=== PATIENT | female | born 1935 | race African-American/Black ===

== ENCOUNTER 2017-11-01 07:23 | Inpatient (IN) | payer OTHER ==
[~2017-11-01] VITALS: Ht 180.3 cm; Wt 76.0 kg
[2017-11-01] VITALS (8 sets, daily range): BP systolic 102–148; BP diastolic 61–87
[2017-11-01 07:41] LABS: BASE EXCESS -9.6 mEq/L (-3 to +3); METHEMOGLOBIN 0.7 % (0-1.5); PCO2 51 mm Hg (35-45); PO2 50 mm Hg (80-100)
[2017-11-01 07:42] LABS: COMMENTS - BLOOD GASES A+C+; DEVICE NEB; O2 FLOW 8 L/MIN; SITE RR; pH 7.18 (7.35-7.45)
[2017-11-01 07:53] LABS: HEMATOCRIT 44.8 % (36.0-46.0); HEMOGLOBIN 14.1 G/DL (11.9-15.5); MCH 31.6 PG (29.0-34.0); MCHC 31.5 G/DL (30.0-36.0); MCV 100.4 FL (83-99); PLATELET COUNT 294 K/uL (156-360); RBC DIS.WIDTH-CV 14.1 % (11.8-14.6); RBC DIS.WIDTH-SD 52.7 % (39-53); RED BLOOD COUNT 4.46 M/uL (3.80-5.20); WHITE BLOOD COUNT 15.3 K/uL (4.1-10.2)
[2017-11-01 07:59] LABS: INTER. NORMALIZED RATIO 1.1
[2017-11-01 08:03] LABS: ALBUMIN 3.6 g/dL (3.2-4.8); CHLORIDE 107 mEq/L (99-109); POTASSIUM 3.8 mEq/L (3.7-5.4); SODIUM 140 mEq/L (136-147)
[2017-11-01 08:04] LABS: MAGNESIUM 2.1 mg/dL (1.3-2.7)
[2017-11-01 08:06] LABS: TOTAL PROTEIN 7.5 g/dL (6.4-8.3)
[2017-11-01 08:07] LABS: TOTAL BILIRUBIN 0.6 mg/dL (0.0-1.0)
[2017-11-01 08:09] LABS: ALKALINE PHOSPHATASE 106 IU/L (3-129); CREATININE 1.6 mg/dL (0.6-1.3); GFR ESTIMATE (CALCULATED) 40 mL/min/
[2017-11-01 08:10] LABS: UREA NITROGEN (BUN) 17 mg/dL (9-23)
[2017-11-01 08:11] LABS: AST (GOT) 38 IU/L (2-34)
[2017-11-01 08:12] LABS: ALT (GPT) 29 IU/L (3-49); CREATINE KINASE 107 IU/L (1-294); TOTAL CK 107 IU/L (1-294)
[2017-11-01 08:13] LABS: TROP-I INTERPRETATION NEGATIVE; TROPONIN-I 0.13 ng/mL (0.0-0.30)
[2017-11-01 08:14] LABS: GLUCOSE 576 mg/dL (70-99)
[2017-11-01 08:18] LABS: CK-MB 4.2 ng/mL (0.0-4.9); CKMB RELATIVE INDEX 3.9 (0.0-3.9)
[2017-11-01 09:20] LABS: CHLORIDE 108 mEq/L (99-109); POTASSIUM 4.3 mEq/L (3.7-5.4); SODIUM 139 mEq/L (136-147)
[2017-11-01 09:26] LABS: CREATININE 1.5 mg/dL (0.6-1.3); GFR ESTIMATE (CALCULATED) 43 mL/min/; PHOSPHORUS 4.1 mg/dL (2.5-4.9)
[2017-11-01 09:27] LABS: UREA NITROGEN (BUN) 17 mg/dL (9-23)
[2017-11-01 09:34] LABS: GLUCOSE 512 mg/dL (70-99)
[2017-11-01] MEDS ORDERED: NORVASC5 MG PO (13:05)
[2017-11-01] MEDS ORDERED: SYNTHROID112 MCG PO (13:05)
[2017-11-01] MEDS ORDERED: ATENOLOL50 MG PO (13:05)
[2017-11-01] MEDS ORDERED: NITROSTAT0.4 MG SL (13:06)
[2017-11-01] MEDS ORDERED: LOSARTAN POTAS100 MG PO (13:06)
[2017-11-01] MEDS ORDERED: GABAPENTIN100 MG PO (13:06)
[2017-11-01] MEDS ORDERED: ASPIRIN EC325 MG PO (13:06)
[2017-11-01] MEDS ORDERED: GLIPIZIDE5 MG PO (13:06)
[2017-11-01] MEDS ORDERED: METFORMIN HCL850 MG PO (13:06)
[2017-11-01 15:38] LABS: CHLORIDE 110 mEq/L (99-109); POTASSIUM 4.3 mEq/L (3.7-5.4); SODIUM 142 mEq/L (136-147)
[2017-11-01 15:42] LABS: GLUCOSE 249 mg/dL (70-99)
[2017-11-01 15:43] LABS: CREATININE 1.3 mg/dL (0.6-1.3); GFR ESTIMATE (CALCULATED) 51 mL/min/; PHOSPHORUS 2.9 mg/dL (2.5-4.9)
[2017-11-01 15:44] LABS: UREA NITROGEN (BUN) 18 mg/dL (9-23)
[2017-11-01 21:09] LABS: CHLORIDE 107 MEQ/L (99-109); CREATININE 1.1 MG/DL (0.6-1.3); GFR ESTIMATE (CALCULATED) > 59 mL/min/; GLUCOSE 183 mg/dL (70-99); PHOSPHORUS 2.7 mg/dL (2.5-4.9); POTASSIUM 4.1 MEQ/L (3.7-5.4); SODIUM 139 MEQ/L (136-147); UREA NITROGEN (BUN) 17 mg/dL (9-23)
[2017-11-01 22:44] LABS: APPEARANCE CLEAR ((CLEAR)); BILIRUBIN NEGATIVE; BLOOD SMALL; COLOR YELLOW ((YELLOW)); GLUCOSE (STRIP) NEGATIVE; KETONES NEGATIVE; LEUKOCYTES NEGATIVE; NITRITE NEGATIVE; PROTEIN (STRIP) NEGATIVE; SPECIFIC GRAVITY 1.009 (1.000-1.030); UROBILINOGEN 0.2 MG/DL (0.2-1.0)
[2017-11-01 23:02] LABS: BACTERIA NONE SEEN /HPF; EPITHELIAL CELLS RARE /HPF; HYALINE CASTS 0-5 /LPF; MUCUS TRACE /LPF; RED BLOOD CELLS 0-5 /HPF (0-5); UCUL ADDED? NO; WHITE BLOOD CELLS 0-5 /HPF (0-5)
[2017-11-02] VITALS (23 sets, daily range): BP systolic 82–164; BP diastolic 45–98
[2017-11-02 02:20] LABS: CHLORIDE 109 mEq/L (99-109); SODIUM 140 mEq/L (136-147)
[2017-11-02 02:22] LABS: GLUCOSE 252 mg/dL (70-99)
[2017-11-02 02:25] LABS: CREATININE 1.2 mg/dL (0.6-1.3); GFR ESTIMATE (CALCULATED) 55 mL/min/; PHOSPHORUS 3.7 mg/dL (2.5-4.9); POTASSIUM 5.1 mEq/L (3.7-5.4)
[2017-11-02 02:26] LABS: UREA NITROGEN (BUN) 17 mg/dL (9-23)
[2017-11-02 05:12] LABS: BASOPHIL (%) 0.3 % (0-1); EOSINOPHIL (%) 0 % (0-5); HEMATOCRIT 42.3 % (36.0-46.0); HEMOGLOBIN 13.4 G/DL (11.9-15.5); IMMATURE GRANULOCYTE (%) 0.6 % (0.0-0.7); LYMPHOCYTE (%) 7.7 % (15-42); LYMPHOCYTE COUNT 1.2 K/uL (1.0-2.8); MCH 31.2 PG (29.0-34.0); MCHC 31.7 G/DL (30.0-36.0); MCV 98.6 FL (83-99); MONOCYTE COUNT 0.6 K/uL (0-0.8); NEUTROPHIL (%) 87.4 % (45-76); NEUTROPHIL COUNT 13.8 K/uL (1.8-6.4); PLATELET COUNT 227 K/uL (156-360); RBC DIS.WIDTH-CV 14.3 % (11.8-14.6); RBC DIS.WIDTH-SD 51.6 % (39-53); RED BLOOD COUNT 4.29 M/uL (3.80-5.20); WHITE BLOOD COUNT 15.7 K/uL (4.1-10.2)
[2017-11-02 05:39] LABS: BASE EXCESS -4.5 mEq/L (-3 to +3); BICARBONATE 21.1 mEq/L (22-26); METHEMOGLOBIN 1.5 % (0-1.5); PCO2 40 mm Hg (35-45); PO2 89 mm Hg (80-100); SITE RR; pH 7.33 (7.35-7.45)
[2017-11-02 05:40] LABS: COMMENTS - BLOOD GASES A+C+; CONTINUOUS POS AIRWAY PRESSURE 5 cm H2O; DEVICE MASK VENT; FI02 100 %; MODE NSPONT; PRES. SUPPORT 10 CM/H2O; TOTAL RESP RATE 26 resp/min
[2017-11-02 05:41] LABS: CHLORIDE 105 MEQ/L (99-109); CREATININE 1.1 MG/DL (0.6-1.3); GFR ESTIMATE (CALCULATED) > 59 mL/min/; GLUCOSE 259 mg/dL (70-99); MAGNESIUM 1.8 mg/dl (1.3-2.7); SODIUM 139 MEQ/L (136-147); UREA NITROGEN (BUN) 18 mg/dL (9-23)
[2017-11-02 05:43] LABS: PHOSPHORUS 3.8 mg/dL (2.5-4.9)
[2017-11-02 08:31] LABS: HEMOGLOBIN A1c (GLYCOHEMOGLOB) 7.3 % (Below 5.7)
[2017-11-02 08:55] LABS: CHLORIDE 107 MEQ/L (99-109); GFR ESTIMATE (CALCULATED) > 59 mL/min/; GLUCOSE 274 mg/dL (70-99); PHOSPHORUS 3.4 mg/dL (2.5-4.9); POTASSIUM 5.1 MEQ/L (3.7-5.4); SODIUM 138 MEQ/L (136-147); UREA NITROGEN (BUN) 20 mg/dL (9-23)
[2017-11-02 11:45] LABS: BASE EXCESS -1.1 mEq/L (-3 to +3); CARBOXY HGB 1.9 % (0-5); COMMENTS - BLOOD GASES C+; CONTINUOUS POS AIRWAY PRESSURE 5 cm H2O; DEVICE MASK VENT; FI02 50 %; METHEMOGLOBIN 1.7 % (0-1.5); MODE SPONT; PCO2 31 mm Hg (35-45); PEEP 0 CM/H20; PO2 74 mm Hg (80-100); PRES. SUPPORT 10 CM/H2O; SITE RR; TOTAL RESP RATE 26 resp/min; pH 7.46 (7.35-7.45)
[2017-11-02 12:36] LABS: CHLORIDE 106 MEQ/L (99-109); POTASSIUM 4.8 MEQ/L (3.7-5.4); SODIUM 139 MEQ/L (136-147)
[2017-11-02 12:41] LABS: CREATININE 1.1 MG/DL (0.6-1.3); GFR ESTIMATE (CALCULATED) > 59 mL/min/; GLUCOSE 281 mg/dL (70-99); UREA NITROGEN (BUN) 21 mg/dL (9-23)
[2017-11-02 15:22] LABS: CHLORIDE 107 MEQ/L (99-109); CREATININE 1.1 MG/DL (0.6-1.3); GFR ESTIMATE (CALCULATED) > 59 mL/min/; GLUCOSE 242 mg/dL (70-99); POTASSIUM 4.7 MEQ/L (3.7-5.4); SODIUM 141 MEQ/L (136-147); UREA NITROGEN (BUN) 22 mg/dL (9-23)
[2017-11-02 17:27] LABS: CHLORIDE 106 MEQ/L (99-109); CREATININE 1.1 MG/DL (0.6-1.3); GFR ESTIMATE (CALCULATED) > 59 mL/min/; GLUCOSE 239 mg/dL (70-99); POTASSIUM 4.7 MEQ/L (3.7-5.4); SODIUM 141 MEQ/L (136-147); UREA NITROGEN (BUN) 22 mg/dL (9-23)
[2017-11-03] VITALS (23 sets, daily range): BP systolic 90–149; BP diastolic 46–91
[2017-11-03 06:25] LABS: BASE EXCESS -0.2 mEq/L (-3 to +3); CARBOXY HGB 2.1 % (0-5); METHEMOGLOBIN 1.4 % (0-1.5); PO2 64 mm Hg (80-100); pH 7.42 (7.35-7.45)
[2017-11-03 06:26] LABS: DEVICE HHFNC; O2 FLOW 40 L/MIN; PCO2 37 mm Hg (35-45); SITE RR
[2017-11-03 06:27] LABS: FI02 70 %
[2017-11-03 06:50] LABS: BASOPHIL (%) 0.2 % (0-1); EOSINOPHIL (%) 0 % (0-5); HEMOGLOBIN 13.2 G/DL (11.9-15.5); IMMATURE GRANULOCYTE (%) 0.7 % (0.0-0.7); LYMPHOCYTE (%) 9.1 % (15-42); LYMPHOCYTE COUNT 1.2 K/uL (1.0-2.8); MCH 32.1 PG (29.0-34.0); MCV 97.3 FL (83-99); MONOCYTE (%) 5.3 % (3-12); MONOCYTE COUNT 0.7 K/uL (0-0.8); NEUTROPHIL (%) 84.7 % (45-76); NEUTROPHIL COUNT 10.9 K/uL (1.8-6.4); PLATELET COUNT 188 K/uL (156-360); RBC DIS.WIDTH-CV 14.6 % (11.8-14.6); RBC DIS.WIDTH-SD 52.2 % (39-53); RED BLOOD COUNT 4.11 M/uL (3.80-5.20); WHITE BLOOD COUNT 12.9 K/uL (4.1-10.2)
[2017-11-03 07:25] LABS: CHLORIDE 104 MEQ/L (99-109); CREATININE 1.2 MG/DL (0.6-1.3); GFR ESTIMATE (CALCULATED) 55 mL/min/; GLUCOSE 247 mg/dL (70-99); PHOSPHORUS 3.3 mg/dL (2.5-4.9); POTASSIUM 4.8 MEQ/L (3.7-5.4); SODIUM 139 MEQ/L (136-147); UREA NITROGEN (BUN) 25 mg/dL (9-23)
[2017-11-03 09:47] LABS: BASE EXCESS -0.5 mEq/L (-3 to +3); BICARBONATE 24.2 mEq/L (22-26); METHEMOGLOBIN 1.3 % (0-1.5); PCO2 39 mm Hg (35-45); PO2 66 mm Hg (80-100)
[2017-11-03 09:48] LABS: COMMENTS - BLOOD GASES NAC+; DEVICE HEATED HF CANNULA; FI02 70 %; O2 FLOW 40 L/MIN; SITE RR; TOTAL RESP RATE 32 resp/min
[2017-11-03 14:57] LABS: CHLORIDE 103 MEQ/L (99-109); CREATININE 1.2 MG/DL (0.6-1.3); GFR ESTIMATE (CALCULATED) 55 mL/min/; GLUCOSE 205 mg/dL (70-99); POTASSIUM 4.1 MEQ/L (3.7-5.4); SODIUM 142 MEQ/L (136-147); UREA NITROGEN (BUN) 28 mg/dL (9-23)
[2017-11-03 17:25] LABS: CHLORIDE 104 MEQ/L (99-109); POTASSIUM 4.1 MEQ/L (3.7-5.4); SODIUM 141 MEQ/L (136-147)
[2017-11-03 17:31] LABS: CREATININE 1.2 MG/DL (0.6-1.3); GFR ESTIMATE (CALCULATED) 55 mL/min/; GLUCOSE 205 mg/dL (70-99); UREA NITROGEN (BUN) 29 mg/dL (9-23)
[2017-11-04] VITALS (17 sets, daily range): BP systolic 96–137; BP diastolic 48–73
[2017-11-04 05:28] LABS: BASE EXCESS 3.3 mEq/L (-3 to +3); BICARBONATE 27.8 mEq/L (22-26); CARBOXY HGB 3.3 % (0-5); METHEMOGLOBIN 1.1 % (0-1.5); PCO2 41 mm Hg (35-45); pH 7.44 (7.35-7.45)
[2017-11-04 05:29] LABS: COMMENTS - BLOOD GASES C+A+; DEVICE HHFNC; FI02 50 %; O2 FLOW 40 L/MIN; PO2 123 mm Hg (80-100); SITE LR
[2017-11-04 05:35] LABS: BASOPHIL (%) 0.2 % (0-1); EOSINOPHIL (%) 0 % (0-5); HEMATOCRIT 33.7 % (36.0-46.0); HEMOGLOBIN 10.9 G/DL (11.9-15.5); IMMATURE GRANULOCYTE (%) 0.7 % (0.0-0.7); LYMPHOCYTE (%) 13.5 % (15-42); LYMPHOCYTE COUNT 1.2 K/uL (1.0-2.8); MCH 31.2 PG (29.0-34.0); MCHC 32.3 G/DL (30.0-36.0); MCV 96.6 FL (83-99); MONOCYTE (%) 5.8 % (3-12); MONOCYTE COUNT 0.5 K/uL (0-0.8); NEUTROPHIL (%) 79.8 % (45-76); NEUTROPHIL COUNT 7.1 K/uL (1.8-6.4); PLATELET COUNT 187 K/uL (156-360); RBC DIS.WIDTH-CV 14.6 % (11.8-14.6); RBC DIS.WIDTH-SD 51.9 % (39-53); RED BLOOD COUNT 3.49 M/uL (3.80-5.20); WHITE BLOOD COUNT 8.9 K/uL (4.1-10.2)
[2017-11-04 05:56] LABS: CHLORIDE 103 MEQ/L (99-109); CREATININE 1.3 MG/DL (0.6-1.3); GFR ESTIMATE (CALCULATED) 51 mL/min/; GLUCOSE 250 mg/dL (70-99); PHOSPHORUS 4.1 mg/dL (2.5-4.9); POTASSIUM 3.8 MEQ/L (3.7-5.4); SODIUM 145 MEQ/L (136-147); UREA NITROGEN (BUN) 35 mg/dL (9-23)
[2017-11-04 09:57] LABS: CHLORIDE 105 MEQ/L (99-109); CREATININE 1.2 MG/DL (0.6-1.3); GFR ESTIMATE (CALCULATED) 55 mL/min/; GLUCOSE 266 mg/dL (70-99); POTASSIUM 3.8 MEQ/L (3.7-5.4); SODIUM 145 MEQ/L (136-147); UREA NITROGEN (BUN) 37 mg/dL (9-23)
[2017-11-04 14:40] LABS: CHLORIDE 107 MEQ/L (99-109); CREATININE 1.1 MG/DL (0.6-1.3); GFR ESTIMATE (CALCULATED) > 59 mL/min/; GLUCOSE 175 mg/dL (70-99); POTASSIUM 3.5 MEQ/L (3.7-5.4); SODIUM 147 MEQ/L (136-147); UREA NITROGEN (BUN) 36 mg/dL (9-23)
[2017-11-05 00:15] VITALS: BP 139/72
[2017-11-05 07:38] VITALS: BP 129/86
[2017-11-05 08:38] LABS: HEMATOCRIT 36.2 % (36.0-46.0); HEMOGLOBIN 11.4 G/DL (11.9-15.5); MCH 30.9 PG (29.0-34.0); MCHC 31.5 G/DL (30.0-36.0); MCV 98.1 FL (83-99); PLATELET COUNT 204 K/uL (156-360); RBC DIS.WIDTH-CV 14.6 % (11.8-14.6); RBC DIS.WIDTH-SD 52.9 % (39-53); RED BLOOD COUNT 3.69 M/uL (3.80-5.20); WHITE BLOOD COUNT 6.5 K/uL (4.1-10.2)
[2017-11-05 08:58] LABS: CHLORIDE 110 MEQ/L (99-109); GFR ESTIMATE (CALCULATED) > 59 mL/min/; GLUCOSE 225 mg/dL (70-99); POTASSIUM 3.5 MEQ/L (3.7-5.4); SODIUM 151 MEQ/L (136-147); UREA NITROGEN (BUN) 34 mg/dL (9-23)
[2017-11-05] MEDS ORDERED: CEFTRIAXONE1 G1 IV (10:28)
[2017-11-05] MEDS ORDERED: DUONEB 2.5-0.5 M3 ML AEROSOL (10:32)
[2017-11-05] MEDS ORDERED: ONDANSETRON4 MG/2 ML IV (10:34)
[2017-11-05] MEDS ORDERED: SEROQUEL12.5 MG PO (10:34)
[2017-11-05 12:17] VITALS: BP 127/69
[2017-11-05 16:09] LABS: CHLORIDE 109 MEQ/L (99-109); CREATININE 0.9 MG/DL (0.6-1.3); GFR ESTIMATE (CALCULATED) > 59 mL/min/; GLUCOSE 213 mg/dL (70-99); POTASSIUM 3.5 MEQ/L (3.7-5.4); SODIUM 154 MEQ/L (136-147); UREA NITROGEN (BUN) 32 mg/dL (9-23)
[2017-11-05 16:38] VITALS: BP 157/73
[2017-11-05 19:00] VITALS: BP 148/67
[2017-11-05 22:50] VITALS: BP 141/67
== END 2017-11-06 01:30 | disposition short-term general hospital (02) | DRG 190 ==
LOC: EME 07:23 → EDOF 14:22 → 4WEST 14:22 → ENRESERV 14:23 → CANRESERV 14:23 → ENRESERV 14:28 → 4WEST 15:40 → ENRESERV 11-04 → 4WEST 11-04 14:46 → ENRESERV 11-04 14:52 → 5EAST 11-04 16:04
PROVIDERS: Emergency Medicine; Internal Medicine; Surgery
DX: J44.0 Chronic obstructive pulmonary disease with (acute) lower respiratory infection (principal); J96.01 Acute respiratory failure with hypoxia; J18.9 Pneumonia, unspecified organism; E11.10 Type 2 diabetes mellitus with ketoacidosis without coma; E03.9 Hypothyroidism, unspecified; M25.78 Osteophyte, vertebrae; F03.90 Unspecified dementia, unspecified severity, without behavioral disturbance, psychotic disturbance, mood disturbance, and anxiety; R13.10 Dysphagia, unspecified; I10 Essential (primary) hypertension; K21.9 Gastro-esophageal reflux disease without esophagitis; E78.5 Hyperlipidemia, unspecified; J81.0 Acute pulmonary edema; N28.9 Disorder of kidney and ureter, unspecified; I95.9 Hypotension, unspecified; I27.20 Pulmonary hypertension, unspecified; I25.2 Old myocardial infarction; Z95.1 Presence of aortocoronary bypass graft
CPT/HCPCS: 36600; 71045; 74230; 80048; 80048 91; 80053; 81003; 82330; 82550; 82553; 82803; 82948; 83036; 83605; 83735; 83880; 84100; 84484; 85025; 85027; 85610; 87040; 87502; 87641; 92610 GN; 92611 GN; 93005; 93306; 93970; 94002; 94003; 94640; 94640 76; 94760; 94799; 99202; 99281; 99285; J0456; J0696; J1630; J1644; J1815; J1940; J2060; J2405; J2543; J3010; J3260; J3370; J7030; J7050; J7644; S0028